=== PATIENT | female | born 1960 | race Hispanic/Latino ===

== ENCOUNTER → 2023-01-16 | Outpatient (CLI) | payer BC, OTHER | END | disposition home or self-care (01) | LOC: RAH 14:13 | PROVIDERS: ATTEND Physician Assistant Medical | DX: R92.8 Other abnormal and inconclusive findings on diagnostic imaging of breast (principal) | CPT/HCPCS: 77066 ==

== ENCOUNTER → 2024-08-01 | Outpatient (CLI) | payer BC, OTHER ==
--- NOTE | 2024-08-04 10:35 | HMCIMG ---
MAMMO SCREENING BILATERAL HISTORY: Screening mammogram. COMPARISON: 01/16/2023 TECHNIQUE: Bilateral screening mammogram with CAD was performed with craniocaudal and mediolateral oblique projections. FINDINGS: There are scattered areas of fibroglandular density. There is no evidence of a dominant mass, or suspicious microcalcification. There is no evidence of nipple retraction or skin thickening. IMPRESSION: 1. Stable mammogram. Patient was entered into a reminder system with a target due date for their next mammogram. BI-RADS: CATEGORY 2: BENIGN FINDINGS Recommend monthly self breast exam as well as annual clinical examination. A negative x-ray should not delay biopsy if a dominant or clinically suspicious mass is present, since 8-10% of cancers are not identified by mammography. Dense breasts particularly, may obscure an underlying neoplasm. Some of these may be detected clinically and therefore, clinical examination is an essential part of breast evaluation.
== END | disposition home or self-care (01) ==
LOC: RAH 13:39
PROVIDERS: ATTEND Physician Assistant Medical
DX: Z12.31 Encounter for screening mammogram for malignant neoplasm of breast (principal); R92.323 Mammographic fibroglandular density, bilateral breasts
CPT/HCPCS: 77067

== ENCOUNTER 2025-03-09 08:12 | Emergency (ER) | payer BC, OTHER ==
[~2025-03-09] VITALS: Ht 170.2 cm; Wt 94.8 kg
[2025-03-09 08:39] LABS: IMMATURE GRANULOCYTE ABSOLUTE 0.02 K/uL (0-1); NUCLEATED RED BLOOD CELLS 0.0 % (0.0-0.19); PLATELET COUNT (AUTO) 212 K/uL (130-400); RED BLOOD CELL COUNT(AUTO) 4.94 MIL/uL (4.00-5.50); RED CELL DISTRIBUTION WIDTH 13.2 % (11.0-15.5); WHITE BLOOD COUNT (AUTO) 4.5 K/uL (4.8-10.8)
--- NOTE | 2025-03-09 08:39 | EKG ---
[facility] Test Date: 2025-03-09 Test Time: 08:21:48 Pat Name: RUBÉN PRINCE Department: ED Room: Gender: F [employer]: [id number] : 1960 Requested By: YAJAIRA SEGOVIA Order Number: [id number] Reading MD: Samy Ortiz Measurements Intervals [place] Rate: 79 P: 56 HI: 178 QRS: -18 QRSD: 93 T: 35 QT: 403 QTc: 461 Interpretive Statements Sinus rhythm No previous ECG available for comparison Electronically Signed On 03-09-2025 13:43:03 CDT by Samy Ortiz Please click the below link to view image of tracing.
[2025-03-09 08:50] LABS: CREATININE 0.7 mg/dL (0.5-1.0); GLOMERULAR FILTR. RATE CALC 97.0 mL/min (>90); GLUCOSE,RANDOM 90.0 mg/dL (70-105); SODIUM SERUM 144.0 mmol/L (136-145); UREA NITROGEN, BLOOD 17.0 mg/dL (7-18)
[2025-03-09 08:57] LABS: ASPARTATE AMINOTRANSFERASE 19.0 U/L (10-37); TOTAL PROTEIN, SERUM 7.1 g/dL (6.0-8.3)
[2025-03-09 09:27] LABS: APPEARANCE,URINE CLEAR (CLEAR); GLUCOSE, URINE (UA) NEGATIVE (NEGATIVE); LEUKOCYTE ESTERASE ,URINE NEGATIVE Leu/uL (NEGATIVE); NITRATE,URINE NEGATIVE (NEGATIVE); OCCULT BLOOD,URINE SMALL (NEGATIVE)
[2025-03-09 09:29] LABS: ADD UA MICROSCOPIC YES
[2025-03-09 09:31] LABS: SQUAMOUS EPITHELIAL CELL,UR RARE /HPF (0-2)
--- NOTE | 2025-03-09 10:04 | HMCIMG ---
EXAM: US Abdomen, Right Upper Quadrant. CLINICAL HISTORY: gallbladder TECHNIQUE: Right upper quadrant sonography performed with image documentation. COMPARISON: None provided. FINDINGS: Liver: The liver measures 14 cm in craniocaudal dimension. Echotexture is homogeneous and hyperechoic. No focal hepatic lesions identified. No intrahepatic biliary dilatation. Gallbladder: The gallbladder is contracted with a wall thickness of 4 mm. No gallstones or pericholecystic fluid seen. No evidence of cholecystitis. Common Bile Duct (CBD): The CBD measures 3 mm in diameter, within normal limits. No evidence of biliary dilatation. Pancreas: Pancreas is visualized and appears within normal limits. No focal lesions, masses, or ductal dilatation. Right Kidney: The right kidney measures 10.4 x 5.7 x 4.5 cm. Corticomedullary differentiation is preserved. No evidence of hydronephrosis, masses, or renal calculi. No perinephric fluid. Bowel: Bowel loops are partially visualized. No abnormal masses or free fluid detected. Vessels: Portal vein and hepatic veins are patent. No thrombosis or abnormality detected. IMPRESSION: Hepatic steatosis. /Aure
--- NOTE | 2025-03-09 10:46 | ERN ---
ED Note History of Present Illness Stated Complaint: RUQ PAIN X 3 WEEKS Chief Complaint: Abdominal Pain Time Seen by MD: 08:19 Dictation: 64-year-old female presenting to the emergency department with right-sided upper abdominal quadrant pain over the past three weeks on and off today got worse. Does report some nausea no vomiting no fever. Patient reported history of gallstones in the past. Allergies: Coded Allergies: amoxicillin (Unverified Allergy, Unknown, SWOLLEN TONGUE, 03/09/25) Past Medical History Past Medical History: Arthritis, Hypothyroid Surgical History: Surgical History Other: SHOULDER Review of System Dictation Constitutional: Negative for fever,chills, and weight loss Eyes: Negative for injury, pain,redness, and discharge ENT: Negative for injury,pain or swelling Cardiovascular: Negative for chest pain, palpitations, and edema Respiratory: Negative for shortness of breath, cough, and wheezing, Abdomen/GI: Per HPI : Negative for injury, bleeding and discharge MS/Extremity: Negative for injury and deformity Skin: Negative for rash, and discoloration Neuro: Negative for headache, weakness, numbness, tingling, and seizure Psych: Negative for suicide ideation, homicidal ideation, and hallucinations Initial Vital Sign VS Vital Signs Date Time Temp Pulse Resp B/P (MAP) Pulse Ox O2 Delivery O2 Flow Rate FiO2 03/09/25 08:13 97.5 83 16 126/71 96 Room Air 0 03/09/25 08:24 21 Physical Exam Dictation General: awake, alert, NAD Head/Face: Normocephalic, atraumatic Eyes: PERRL, EOMI, vision at baseline ENT: oral cavity clear, TMs clear, no signs of infection Neck: Trachea midline, supple, no nuchal rigidity Cardiovascular: RRR, normal S1/S2, No MRGs, no JVD Respiratory: CTAB, no respiratory distress, No rales or wheezes Abdomen: Soft, right upper quadrant tenderness to palpation, non-distended, normal bowel sounds, no guarding or rebound. Skin: Warm, dry, normal turgor, no rash MS/Extremity: Pulses equal, no cyanosis, neurovascular intact, FROM Neuro: COAx4, GCS 15, strength 5/5, CN 2-12 intact, normal cerebellar exam, normal gait, Psych: Normal behavior, mood, and affect normal Results (Laboratory/Radiology) Laboratory/Radiology Laboratory Tests Test 03/09/25 08:34 03/09/25 09:17 White Blood Count 4.5 K/uL (4.8-10.8) L Red Blood Count 4.94 MIL/uL (4.00-5.50) Hemoglobin 14.8 g/dL (12.0-16.0) Hematocrit 43.9 % (36-48) Mean Corpuscular Volume 88.9 fL (79-99) Mean Corpuscular Hemoglobin 30.0 pg (27.0-33.0) Mean Corpuscular Hemoglobin Concent 33.7 g/dL (32.0-36.0) Red Cell Distribution Width 13.2 % (11.0-15.5) Platelet Count 212 K/uL (130-400) Mean Platelet Volume 9.5 fL (7.5-10.5) Immature Granulocyte % (Auto) 0.4 % (0-1) Neutrophils (%) (Auto) 53.7 % (40.0-77.0) Lymphocytes (%) (Auto) 32.7 % (21.0-51.0) Monocytes (%) (Auto) 10.5 % (3.0-13.0) Eosinophils (%) (Auto) 1.8 % (0.0-8.0) Basophils (%) (Auto) 0.9 % (0.0-5.0) Neutrophils # (Auto) 2.4 K/uL (1.8-7.7) Lymphocytes # (Auto) 1.5 K/uL (1.0-4.8) Monocytes # (Auto) 0.5 K/uL (0.1-1.0) Eosinophils # (Auto) 0.08 K/uL (0.00-0.70) Basophils # (Auto) 0.04 K/uL (0.00-0.20) Absolute Immature Granulocyte (auto 0.02 K/uL (0-1) Nucleated Red Blood Cells 0.0 % (0.0-0.19) Sodium Level 144 mmol/L (136-145) Potassium Level 4.2 mmol/L (3.5-5.1) Chloride Level 107 mmol/L (101-111) Carbon Dioxide Level 28 mmol/L (21-32) Blood Urea Nitrogen 17 mg/dL (7-18) Creatinine 0.7 mg/dL (0.5-1.0) Glomerular Filtration Rate Calc 97 mL/min (>90) Random Glucose 90 mg/dL (70-105) Total Calcium 8.8 mg/dL (8.5-10.1) Total Bilirubin 0.5 mg/dL (0.2-1.0) Direct Bilirubin 0.1 mg/dL (0.0-0.3) Aspartate Amino Transf (AST/SGOT) 19 U/L (10-37) Alanine Aminotransferase (ALT/SGPT) 32 U/L (12-78) Alkaline Phosphatase 134 U/L (50-136) Troponin I High Sensitivity < 4 ng/L (4-50) L Total Protein 7.1 g/dL (6.0-8.3) Albumin 3.6 g/dL (3.5-5.0) Lipase 18 U/L (16-77) Urine Color LIGHT-YELLOW (YELLOW) Urine Appearance CLEAR (CLEAR) Urine pH 6.0 (5.0-8.0) Urine Specific [place] 1.020 (1.001-1.031) Urine Protein 10 mg/dL (NEGATIVE) H Urine Glucose (UA) NEGATIVE mg/dL (NEGATIVE) Urine Ketones NEGATIVE mg/dL (NEGATIVE) Urine Occult Blood SMALL (NEGATIVE) H Urine Nitrate NEGATIVE (NEGATIVE) Urine Bilirubin NEGATIVE mg/dL (NEGATIVE) Urine Urobilinogen 0.2 mg/dL (0.2-1.0) Urine Leukocyte Esterase NEGATIVE Gabriel/uL Urine RBC 2-5 /HPF (0-1) H Urine WBC 2-5 /HPF (0-1) H Urine Squamous Epithelial Cells RARE /HPF (0-2) Urine Bacteria None /HPF (None Seen) Urine Hyaline Casts 2-5 /LPF (0-1 /LPF) H Labs Reviewed?: Yes ED Course ED Course Orders Procedure Category Date Status Time Us Abdominal Ruq\Ltd US 03/09/25 Resulted 08:19 12 Lead Ekg Tracing- EKG 03/09/25 Complete Technical 08:19 Basic Metabolic Panel LAB 03/09/25 Complete 08:19 Cbc With Differential LAB 03/09/25 Complete 08:19 Hepatic Function Panel LAB 03/09/25 Complete 08:19 Lipase LAB 03/09/25 Complete 08:19 Troponin I High LAB 03/09/25 Complete Sensitivity 08:19 Urinalysis Profile LAB 03/09/25 Complete 08:19 Ondansetron 4mg Inj PHA 03/09/25 Complete (Zofran 4mg Inj) 08:30 Morphine 4mg Syg PHA 03/09/25 Complete (Morphine 4mg Syg) 08:30 Ct Abd/Pel Wo Con CT 03/09/25 Resulted Renal/Appy 10:22 Current Medications Medications (Trade) Dose Ordered Sig/Roshni Route PRN Reason Start Time Stop Time Status Last Admin Dose Admin Morphine Sulfate (morPHINE 4MG SYG) 4 mg ONCE ONCE IVP 03/09/25 08:30 03/09/25 08:31 DC 03/09/25 09:35 Ondansetron HCl (zoFRAN 4MG INJ) 4 mg ONCE ONCE IVP 03/09/25 08:30 03/09/25 08:31 DC 03/09/25 09:35 Vital Signs Date Time Temp Pulse Resp B/P (MAP) Pulse Ox O2 Delivery O2 Flow Rate FiO2 03/09/25 09:21 77 16 128/83 96 Room Air* 0 03/09/25 08:24 97.5 83 16 126/71 96 Room Air* 0 03/09/25 08:13 97.5 83 16 126/71 96 Room Air 0 Medical Decision Making MDM MDM: Differential diagnosis: Rationale: Tests considered and ordered secondary to shared decision making include: Previous outside records reviewed: Old ER visits. Risk of complication and/or morbidity or mortality of patient management: None Medications-Per medication reconciliation Need for hospitalization: Patient does not meet criteria for hospitalization. Need for emergency major/minor surgery: No There are no social concerns with this patient. Prescription drug management Prescriptions will include symptomatic care Patient's prior external medical records from other ER visits were reviewed by me as indicated. Prior testing and results from previous visits were reviewed. Prior tests were taken into account with medical decision making and resource utilization, independent historian/historians were used to obtain complete medical history. I independently interpreted the test that were performed, results were reviewed by me and considered findings on radiology if ordered. Medical management and examination interpretation discussions were had by me with other qualified healthcare professionals as indicated for the patient's care. 64-year-old female right upper quadrant pain stable exam failure colic no complications stable for discharge. DX & DISP Disposition: Discharge Departure Impression: Primary Impression: Biliary colic Condition: Stable Scripts Ondansetron (Ondansetron Odt) 4 Mg Tab.rapdis 4 MG PO BID for vomiting for 5 Days, #10 TAB Prov: YAJAIRA SEGOVIA MD 03/09/25 Dicyclomine HCl (Bentyl) 20 Mg Tab 1 TAB PO BID for irritable bowel symptoms for 10 Days, #20 TAB 0 Refills Prov: YAJAIRA SEGOVIA MD 03/09/25 Referrals: BORA DAO (PCP) YAJAIAR SEGOVIA MD Mar 09, 2025 10:46
--- NOTE | 2025-03-09 10:56 | HMCIMG ---
EXAM: CT Abdomen and Pelvis with IV contrast CLINICAL HISTORY: right flank pain TECHNIQUE: Axial computed tomography images of the abdomen and pelvis with intravenous contrast. CT scan performed according to ALARA. Automated exposure control used during exam. CONTRAST: with intravenous contrast. COMPARISON: None provided. FINDINGS: LUNG BASES: The lung bases appear clear. No pleural effusions are seen. LIVER: Unremarkable. GALLBLADDER AND BILE DUCTS: Cholelithiasis without CT evidence for cholecystitis. PANCREAS: Unremarkable. SPLEEN: Unremarkable. ADRENAL GLANDS: Unremarkable. KIDNEYS, URETERS, AND BLADDER: There is mild bilateral perinephric fat stranding that may reflect renal parenchymal disease, recommend correlation with laboratory parameters. There is no hydronephrosis or hydroureter. No urinary calculi are seen. STOMACH AND BOWEL: Small hiatal hernia. Unremarkable appearance of the stomach and bowel. No evidence of bowel obstruction. No evidence suggesting enteritis or colitis. APPENDIX: No evidence of acute appendicitis on CT examination. PERITONEUM: No free fluid. No free air. LYMPH NODES: No lymphadenopathy is evident. REPRODUCTIVE: Suspected leiomyoma at the uterine fundus. If clinically warranted this may be further characterized with ultrasound. VASCULATURE: No evidence of abdominal aortic aneurysm. BONES: No aggressive appearing osseous lesion. No acute osseous pathology evident. Spondylosis throughout the visualized axial skeleton. IMPRESSION: 1. No acute intraabdominal or pelvic pathology. 2. Cholelithiasis without CT evidence of cholecystitis. 3. Mild bilateral perinephric fat stranding, may reflect renal parenchymal disease. Recommend correlation with laboratory parameters. There is no radiopaque renal calculus or hydronephrosis. /[employer]
[2025-03-09] MEDS ORDERED: ONDA-243 PO (11:18)
[2025-03-09] MEDS ORDERED: DICY20TA2 PO (11:18)
[2025-03-09] MEDS: DICYCLOMINE 20MG (10MG/ML) AMP IM ONE ×2 (11:33→11:34)
[2025-03-09 11:36] VITALS: BP 123/80; PULSE 77; RESP 17; TEMP 97.7; O2SAT 99
== END 2025-03-09 11:40 | disposition home or self-care (01) ==
LOC: EDH 08:12
DX: K80.70 Calculus of gallbladder and bile duct without cholecystitis without obstruction (principal); E03.9 Hypothyroidism, unspecified; M19.90 Unspecified osteoarthritis, unspecified site; Z88.0 Allergy status to penicillin
CPT/HCPCS: 99285; 74176; 96374; 76705; 96375; 80076; 84484; 80048; 83690; 85025; 81001; 36415; 96372; 93005; J2405; J2270; J0500